=== PATIENT | female | born 1965 ===

== ENCOUNTER 2022-05-24 16:24 | Emergency (ER) | payer OTHER ==
[~2022-05-24] VITALS: Ht 160 cm; Wt 63.5 kg
[2022-05-24] MEDS ORDERED: Robaxin750 MG PO (18:03)
== END 2022-05-24 18:31 | disposition home or self-care (01) ==
LOC: ER 16:24 → EDBD 16:24 → ER 18:31
DX: M54.2 Cervicalgia (principal)
CPT/HCPCS: 96372; 99283-25; A9270; J1885